=== PATIENT | male | born 1970 | race Caucasian/White ===

== ENCOUNTER 2021-02-08 12:10 | Outpatient (REF) | payer OTHER, SELFPAY ==
--- NOTE | ~2021-02-08 | XR_ITS ---
EXAMINATION: XR CHEST CLINICAL INFORMATION: Weight loss. Tobacco use. COMPARISON: Previous chest x-ray April 2011 TECHNIQUE: 2 views of the chest were obtained. FINDINGS: The cardiac and mediastinal contours are normal. The lungs are clear. There is no pleural effusion or pneumothorax. There are degenerative changes of the spine. XR/XR chest 2V IMPRESSION: No evidence for acute disease in the chest.
[2021-02-08 13:10] LABS: MANUAL DIFF FLAG NO
[2021-02-08 13:17] LABS: Basophils Absolute Auto 0.1 X10*3/uL (0.0-0.2); Basophils Percent Auto 1.1 % (0-2); Eosinophils Absolute Auto 0.5 X10*3/uL (0.0-0.4); Eosinophils Percent Auto 8.4 % (0-4); Hematocrit 37.2 % (42-52); Hemoglobin 12.9 g/dl (14.0-18.0); Imm Gran Abs Auto 0.02 X10*3/uL (0.00-0.03); Imm Gran Pct Auto 0.3 % (0.0-0.4); Lymphocytes Percent Auto 31.4 % (20-40); Mean Corpuscular HGB Conc 34.7 g/dl (31.0-36.0); Mean Corpuscular Hemoglobin 28.9 pg (27.0-33.0); Mean Corpuscular Volume 83.4 fL (80-98); Monocytes Absolute Auto 0.6 X10*3/uL (0.1-1.2); Monocytes Percent Auto 9.5 % (2-11); Neutrophils Absolute Auto 3.1 X10*3/uL (2.0-8.3); Neutrophils Percent Auto 49.3 % (45-73); Platelet Count 282 X10*3/uL (160-400); Red Blood Count 4.46 X10*6/uL (4.60-5.80); Red Cell Distribution Width 12.8 % (11.0-16.0); White Blood Count 6.2 X10*3/uL (4.8-10.8)
[2021-02-08 13:52] LABS: Alanine Aminotransferase 12 U/L (0-40); Albumin Level 4.3 g/dL (3.5-5.0); Alkaline Phosphatase 33 U/L (39-117); Anion Gap 9 (12-20); Aspartate Amino Transferase 26 U/L (5-37); Bilirubin Total 0.9 mg/dL (0.0-1.0); Blood Urea Nitrogen 11 mg/dL (9-16); Calcium 9.2 mg/dL (8.4-10.2); Carbon Dioxide 29 mmol/L (22-29); Chloride 101 mmol/L (96-108); Cholesterol 148 mg/dL; Estimated Glomerular Filt Rate > 60; Glucose Fasting 91 mg/dL (60-99); HDL Cholesterol 54 mg/dL; LDL Cholesterol Calculated 83 mg/dl; Potassium 4.4 mmol/L (3.3-5.1); Sodium 135 mmol/L (135-145); Total Protein 6.8 g/dL (6.5-8.0); Triglycerides 56 mg/dL
[2021-02-08 14:18] LABS: Free T4 (Free Thyroxine) 1.02 ng/dL (0.71-1.85); Thyroid Stimulating Hormone 0.04 uIU/mL (0.32-4.0)
[2021-02-08 16:02] LABS: Prostate Specific Antigen 0.23 ng/mL (<0.05-4.0)
== END 2021-02-08 12:11 | disposition home or self-care (01) ==
LOC: HO.XRAY 12:10
PROVIDERS: PCP Internal Medicine; Visit Provider Internal Medicine
DX: Z12.5 Encounter for screening for malignant neoplasm of prostate (principal); E03.9 Hypothyroidism, unspecified; R63.4 Abnormal weight loss; E20.9 Hypoparathyroidism, unspecified; Z72.0 Tobacco use
CPT/HCPCS: 36415; 71046; 80053; 80061; 84153; 84439; 84443; 85025

== ENCOUNTER 2022-05-15 14:43 | Emergency (ER) | payer OTHER, SELFPAY ==
[2022-05-15 15:42] VITALS: BP 110/65; PULSE 77; RESP 16; TEMP 36.6; O2SAT 99; BMI 24.5
[2022-05-15 15:57] LABS: MANUAL DIFF FLAG NO
[2022-05-15 15:59] LABS: Basophils Percent Auto 0.8 % (0-2); Eosinophils Absolute Auto 0.1 X10*3/uL (0.0-0.4); Eosinophils Percent Auto 2.1 % (0-4); Hematocrit 34.8 % (42.0-52.0); Hemoglobin 11.9 g/dl (14.0-18.0); Lymphocytes Absolute Auto 0.7 X10*3/uL (1.2-4.9); Lymphocytes Percent Auto 18.7 % (20-40); Mean Corpuscular HGB Conc 34.2 g/dl (31.0-36.0); Mean Corpuscular Volume 84.9 fL (80.0-98.0); Mean Platelet Volume 9.8 fL (9.4-12.4); Monocytes Absolute Auto 0.5 X10*3/uL (0.1-1.2); Monocytes Percent Auto 12.8 % (2-11); Neutrophils Absolute Auto 2.5 x10*3/uL (2.0-8.3); Neutrophils Percent Auto 65.6 % (45-73); Platelet Count 169 X10*3/uL (160-400); Red Cell Distribution Width 13.2 % (11.0-16.0); White Blood Count 3.7 X10*3/uL (4.8-10.8)
[2022-05-15 16:30] LABS: Anion Gap 18 (12-20); Blood Urea Nitrogen 18 mg/dL (9-16); Calcium 8.4 mg/dL (8.4-10.2); Carbon Dioxide 23 mmol/L (22-29); Chloride 98 mmol/L (96-108); Creatinine Clr Calc Pharmacy 82.2; Estimated Glomerular Filt Rate > 60; Glucose Random 59 mg/dL (60-115); Potassium 4.2 mmol/L (3.3-5.1); Sodium 135 mmol/L (135-145)
--- NOTE | 2022-05-15 16:48 | PC.NURSE ---
pt reports taking PO zofran at 1300, apple juice given for POC of 59.
[2022-05-15 17:22] LABS: Glucose, Whole Blood 67 mg/dL (60-115)
[2022-05-15 20:26] LABS: Glucose, Whole Blood 86 mg/dL (60-115)
== END 2022-05-15 20:36 | disposition left against medical advice (07) ==
PROVIDERS: Emergency Provider Emergency Medicine; PCP Internal Medicine
DX: K52.9 Noninfective gastroenteritis and colitis, unspecified (principal); E86.0 Dehydration; Z79.899 Other long term (current) drug therapy
CPT/HCPCS: 36415; 80048; 82947; 85025; 99281; 99282; 99283

== ENCOUNTER 2022-11-25 15:58 | Outpatient (REF) | payer OTHER, SELFPAY ==
--- NOTE | ~2022-11-25 | XR_ITS ---
EXAMINATION: XR CHEST CLINICAL INFORMATION: Weight loss COMPARISON: February 08, 2021 and May 21, 2011 TECHNIQUE: 2 views of the chest were obtained. FINDINGS: No significant abnormality is noted involving the heart, lungs, mediastinum, bony thorax or soft tissues. XR/XR chest 2V IMPRESSION: No acute disease.
[2022-11-25 16:14] LABS: MANUAL DIFF FLAG NO
[2022-11-25 16:29] LABS: Basophils Absolute Auto 0.1 X10*3/uL (0.0-0.2); Basophils Percent Auto 0.8 % (0-2); Eosinophils Absolute Auto 0.5 X10*3/uL (0.0-0.4); Eosinophils Percent Auto 6.6 % (0-4); Hematocrit 32.7 % (42.0-52.0); Hemoglobin 11.2 g/dl (14.0-18.0); Imm Gran Abs Auto 0.02 X10*3/uL (0.00-0.03); Imm Gran Pct Auto 0.3 % (0.0-0.4); Lymphocytes Absolute Auto 1.8 X10*3/uL (1.2-4.9); Lymphocytes Percent Auto 23.7 % (20-40); Mean Corpuscular HGB Conc 34.3 g/dl (31.0-36.0); Mean Corpuscular Hemoglobin 29.4 pg (27.0-33.0); Mean Corpuscular Volume 85.8 fL (80.0-98.0); Mean Platelet Volume 10.1 fL (9.4-12.4); Monocytes Absolute Auto 0.7 X10*3/uL (0.1-1.2); Monocytes Percent Auto 8.5 % (2-11); Neutrophils Absolute Auto 4.7 x10*3/uL (2.0-8.3); Neutrophils Percent Auto 60.1 % (45-73); Platelet Count 280 X10*3/uL (160-400); Red Blood Count 3.81 X10*6/uL (4.60-5.80); Red Cell Distribution Width 12.9 % (11.0-16.0); White Blood Count 7.7 X10*3/uL (4.8-10.8)
[2022-11-25 16:32] LABS: Appearance Urine Clear; Color Urine Yellow; Glucose Urine UA Negative (Negative); Leukocyte Esterase Urine Negative (Negative); Nitrite Urine Negative (Negative); PH 5.5 (5.0-9.0); UMIC TRIGGER UA YES; Urine Blood Large (3+) (Negative); Urine Ketones Trace mg/dL (Negative); Urine Protein Negative (Neg-Trace)
[2022-11-25 16:35] LABS: Bacteria Urine None Seen (None Seen); Hyaline Casts Urine 0-2 /LPF (0-2); Squamous Epithelial Cell Urine 0-2 /HPF (0-2); WBC Urine 0-5 /HPF (0-5)
[2022-11-25 17:00] LABS: Alanine Aminotransferase 15 U/L (0-40); Albumin Level 4.5 g/dL (3.5-5.0); Alkaline Phosphatase 35 U/L (39-117); Anion Gap 11 (12-20); Aspartate Amino Transferase 23 U/L (5-37); Bilirubin Total 0.8 mg/dL (0.0-1.0); Blood Urea Nitrogen 19 mg/dL (9-16); Calcium 9.2 mg/dL (8.4-10.2); Carbon Dioxide 26 mmol/L (22-29); Chloride 106 mmol/L (96-108); Cholesterol 159 mg/dL; Estimated Glomerular Filt Rate > 60; Glucose Random 90 mg/dL (60-115); Potassium 4.2 mmol/L (3.3-5.1); Sodium 139 mmol/L (135-145); Total Protein 6.8 g/dL (6.5-8.0)
[2022-11-25 17:22] LABS: Free T4 (Free Thyroxine) 1.32 ng/dL (0.71-1.85); Prostate Specific Antigen < 0.10 ng/mL (<0.05-4.0); Thyroid Stimulating Hormone < 0.01 uIU/mL (0.32-4.0)
== END 2022-11-25 15:59 | disposition home or self-care (01) ==
LOC: HO.LAB 15:58
PROVIDERS: PCP Internal Medicine; Visit Provider Internal Medicine
DX: R63.4 Abnormal weight loss (principal); R10.9 Unspecified abdominal pain; E07.89 Other specified disorders of thyroid; Z12.5 Encounter for screening for malignant neoplasm of prostate
CPT/HCPCS: 36415; 71046; 80053; 81001; 82465; 84153; 84439; 84443; 85025; 86140

== ENCOUNTER 2022-12-07 15:17 | Outpatient (REF) | payer OTHER, SELFPAY ==
--- NOTE | ~2022-12-07 | US_ITS ---
EXAMINATION: US RETROPERITONEAL LIMITED (RENAL ONLY) CLINICAL INFORMATION: Hematuria. COMPARISON: None available. TECHNIQUE: Real-time imaging of the kidneys. FINDINGS: RIGHT KIDNEY: 9.5 x 5.7 x 5.1 cm (SAG x AP x TRV). The kidney is normal in size, contour, and echogenicity. Renal cortical thickness is normal. No calculi or focal parenchymal lesions. No hydronephrosis. LEFT KIDNEY: 10.1 x 5.6 x 4.3 cm (SAG x AP x TRV). The kidney is normal in size, contour, and echogenicity. Renal cortical thickness is normal. No hydronephrosis. Midpole nonobstructing stone measuring 4 mm. Benign-appearing parapelvic cyst measuring up to 1.2 cm. Followup imaging is not routinely recommended for benign appearing cysts.. US/US renal BI IMPRESSION: Nonobstructing left renal nephrolithiasis.
== END 2022-12-07 15:18 | disposition home or self-care (01) ==
LOC: HO.US 15:17
PROVIDERS: PCP Internal Medicine; Visit Provider Internal Medicine
DX: R31.29 Other microscopic hematuria (principal); R63.4 Abnormal weight loss
CPT/HCPCS: 76775

== ENCOUNTER 2024-08-24 09:55 | Outpatient (REF) | payer OTHER, SELFPAY ==
--- NOTE | ~2024-08-24 | XR_ITS ---
CLINICAL HISTORY: Weight loss. r o lesion. 2 view chest x-ray Comparison: None Findings: The lungs are clear. Normal size heart. No acute fracture. IMPRESSION: 1. No acute findings. This document has been electronically signed by: Fidencio Rod MD on 08/24/2024 10:48:10
[2024-08-24 11:35] LABS: Appearance Urine Turbid; Color Urine Yellow; Glucose Urine UA Negative (Negative); Leukocyte Esterase Urine Negative (Negative); Nitrite Urine Negative (Negative); PH 5.5 (5.0-9.0); Specific Gravity - Urine 1.025 (1.005-1.025); UMIC TRIGGER UA YES; Urine Blood Large (3+) (Negative); Urine Ketones Trace mg/dL (Negative); Urine Protein 30 (1+) mg/dL (Neg-Trace)
[2024-08-24 11:43] LABS: Bacteria Urine None Seen (None Seen); Hyaline Casts Urine 0-2 /LPF (0-2); WBC Urine 0-5 /HPF (0-5)
[2024-08-24 11:52] LABS: MANUAL DIFF FLAG NO
[2024-08-24 12:02] LABS: Basophils Absolute Auto 0.1 X10*3/uL (0.0-0.2); Basophils Percent Auto 0.9 % (0-2); Eosinophils Absolute Auto 0.4 X10*3/uL (0.0-0.4); Eosinophils Percent Auto 7.4 % (0-4); Hematocrit 35.9 % (42.0-52.0); Hemoglobin 12.6 g/dl (14.0-18.0); Imm Gran Abs Auto 0.01 X10*3/uL (0.00-0.03); Imm Gran Pct Auto 0.2 % (0.0-0.4); Lymphocytes Absolute Auto 1.3 X10*3/uL (1.2-4.9); Lymphocytes Percent Auto 23.3 % (20-40); Mean Corpuscular HGB Conc 35.1 g/dl (31.0-36.0); Mean Corpuscular Hemoglobin 28.6 pg (27.0-33.0); Mean Corpuscular Volume 81.6 fL (80.0-98.0); Mean Platelet Volume 11.1 fL (9.4-12.4); Monocytes Absolute Auto 0.6 X10*3/uL (0.1-1.2); Monocytes Percent Auto 10.8 % (2-11); Neutrophils Absolute Auto 3.1 x10*3/uL (2.0-8.3); Neutrophils Percent Auto 57.4 % (45-73); Platelet Count 270 X10*3/uL (160-400); Red Cell Distribution Width 12.6 % (11.0-16.0); White Blood Count 5.4 X10*3/uL (4.8-10.8)
[2024-08-24 12:26] LABS: Alanine Aminotransferase 24 U/L (0-40); Albumin Level 4.3 g/dL (3.5-5.0); Alkaline Phosphatase 35 U/L (39-117); Anion Gap 13 (12-20); Aspartate Amino Transferase 35 U/L (5-37); Bilirubin Total 0.6 mg/dL (0.0-1.0); Blood Urea Nitrogen 21 mg/dL (9-16); C Reactive Protein 2.18 mg/dL (< or = 0.50); Calcium 9.1 mg/dL (8.4-10.2); Carbon Dioxide 24 mmol/L (22-29); Chloride 106 mmol/L (96-108); Estimated Glomerular Filt Rate > 60; Glucose Random 90 mg/dL (60-115); Potassium 3.8 mmol/L (3.3-5.1); Sodium 139 mmol/L (135-145); Total Protein 7.7 g/dL (6.5-8.0)
[2024-08-24 12:36] LABS: Prostate Specific Antigen Scr < 0.10 ng/mL (<0.05-4.0)
[2024-08-24 12:45] LABS: Free T4 (Free Thyroxine) 1.69 ng/dL (0.71-1.85); Thyroid Stimulating Hormone < 0.01 uIU/mL (0.32-4.0)
== END 2024-08-24 09:56 | disposition home or self-care (01) ==
LOC: HO.HMGCX 09:55
PROVIDERS: PCP Internal Medicine; Visit Provider Internal Medicine
DX: R63.4 Abnormal weight loss (principal); E03.9 Hypothyroidism, unspecified; R07.9 Chest pain, unspecified
CPT/HCPCS: 36415; 71046; 80053; 81001; 82550; 84153; 84439; 84443; 85025; 86140

== ENCOUNTER → 2024-08-24 10:12 | Outpatient (BNV) | payer OTHER, SELFPAY | PROVIDERS: PCP Internal Medicine; Visit Provider Radiology Diagnostic Radiology | DX: R63.4 Abnormal weight loss (principal) | CPT/HCPCS: 71046 ==

== ENCOUNTER 2024-10-10 13:16 | Outpatient (AMB) | payer OTHER, SELFPAY ==
--- NOTE | 2024-10-10 13:31 | A.OFFPC_ITS ---
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 Required: No Allergies No Known Allergies Allergy (Verified 10/10/24 13:38) Medication List - Last Reconciled 10/10/24 by Sakshi Payne MD desmopressin 10 mcg/spray (0.1 mL) 1 spray intranasal DAILY levothyroxine 88 mcg PO DAILY syringe with needle As directed testosterone cypionate 100 mg (0.5 mL) IM Q2W Dental Screening Did you have a dental visit in the last 12 months?: No Did you have a dental problem in the last 6 months where you did not have access to dental care?: Yes Was dental information given to patient?: No HPI HPI Comments History of Present Illness Details 53 year old male with past medical histo ry of hypopituitary, microscopic hematuria presenting for follow up/establish care Endocrine: Previously following with endocrinology. On levothyroxine 112mcg. Last TSH suppressed . Has not seen endocrinology for quite some time. Says he is feeling awful off testosterone. He was previously on desmopressin. Getting referral today. discussed importance of follow up Microscopic hematuria-denies previous work up Overdue colonscopy ROS joint pain fatigue PHYSICAL EXAM: Deferred [facility] Social History Housing: House Tobacco use type: Cigarette e-Cigarette/Vaping Use: Currently Using Current occupational exposures/hazards: No Cognitive needs: No Hearing needs: No Vision needs: No Physical exam (Primary Care) Vital Signs: Last Vital Signs Temp 97.6 F 10/10/24 13:32 Pulse 81 10/10/24 13:32 BP 118/70 10/10/24 13:32 Pulse Ox 98 10/10/24 13:32 BMI result Body Mass Index 22.5 Tobacco/Smoking Status: Tobacco use Status Patient Tobacco Use Status 10/10/24 13:47 Tobacco use type Cigarette 10/10/24 13:47 e-Cigarette/Vaping Use Currently Using 10/10/24 13:47 Coding Level of Care Code New Pt Level 4 (86069) Diagnoses Hypothyroidism, unspecified type E03.9 Hypothyroidism type: unspecified 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 4 months follow up Orders: Orders Testosterone, Free/Total Today E23.0 - Hypopituitarism Referrals Gastroenterology Referral Z12.11 - Encounter for screening for malignant neoplasm of colon Urology Referral E23.0 - Hypopituitarism, R31.29 - Other microscopic hematuria Endocrinology Referral E23.0 - Hypopituitarism Medications: New levothyroxine 88 mcg PO DAILY 90 tabs 3RF testosterone cypionate 100 mg (0.5 mL) IM Q2W 100 mL 3RF
[2024-10-10 13:32] VITALS: BP 118/70; PULSE 81; TEMP 36.4; O2SAT 98; BMI 22.5
== END 2024-10-10 14:00 | disposition home or self-care (01) ==
LOC: HO.HMCHD 13:16
PROVIDERS: PCP Internal Medicine; Visit Provider Internal Medicine
DX: E03.9 Hypothyroidism, unspecified (principal); E23.0 Hypopituitarism; R31.29 Other microscopic hematuria

== ENCOUNTER → 2024-10-10 13:16 | Outpatient (BNVA) | payer OTHER, SELFPAY | PROVIDERS: PCP Internal Medicine; Visit Provider Internal Medicine | DX: E03.9 Hypothyroidism, unspecified (principal); E23.0 Hypopituitarism; R31.29 Other microscopic hematuria; Z79.899 Other long term (current) drug therapy | CPT/HCPCS: 99202 ==

== ENCOUNTER 2024-10-26 09:38 | Outpatient (REF) | payer OTHER, SELFPAY ==
[2024-11-01 08:39] LABS: Testosterone, Free 7.7 pg/mL (35.0-155.0); Testosterone, Total 117 ng/dL (250-1100)
== END 2024-10-26 09:39 | disposition home or self-care (01) ==
LOC: HO.HMGCLDS 09:38
PROVIDERS: PCP Internal Medicine; Visit Provider Internal Medicine
DX: E23.0 Hypopituitarism (principal)
CPT/HCPCS: 36415; 84402; 84403

== ENCOUNTER 2024-11-14 15:14 | Outpatient (AMB) | payer OTHER, SELFPAY ==
[2024-11-14 15:15] VITALS: BP 104/56; PULSE 72; O2SAT 97; BMI 23.5
--- NOTE | 2024-11-14 15:15 | A.OFFVIS_ITS ---
Vital Signs 11/14/24 15:15 Height 5 ft 3 in Weight 132 lb 7.965 oz BMI 23.5 BP 104/56 L Blood Pressure Location Lt brachial Position Sitting Pulse 72 Pulse Source Pulse Oximeter Pulse Oximetry (%) 97 Oxygen Delivery Method Room Air Intake Visit Reasons: Hypopituitarism Intake Note: New patient present today for Hypopituitarism office visit. 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 Pituitary insufficiency diagnosed 1994, after he had surgical resection of a pituitary tumor 1994. No history of radiation therapy. The surgery was at [facility] , surgeon Dr Monica Calvin. last endo visit was 15 years ago or so, in [place], doesnt remember name He had just been following with his PCP , Dr. Lira, who just retired now seeing Dr. Cora lee who referred him. Hypothyroidism on levothyroxine 88 mcg , takes it appropriately with good adherence mostly except sometimes misses it on weekend apparenlty PCP lowered dose from 112 to 88 mcg daily on 10/10/24 Reports tiredness whihc is chronic for him. Lost 10 lbs since 3 years . Hypogonadism On IM testosterone 100 mg every 2 weeks restarted 10/10/24, every other Monday Was off it for 2.5 years before due to no refills available per patient No history of CAD, PE/DVT No family history of prostate cancer No LUTs Reports somewhat improved energy since restarting testosterone Apparently used to be on hydrocortisone 20 mg from 1994 to 2021, then apparently just stopped getting refills. intermittent nausea, no vomiting , no more tired than usual, no lightheadness or dizziness. Used to be on growth hormone as well for a year up until 2008. then stopped Diabetes insipidus on Desmopressin 10 mcg 3 to 4 times a day No nocturia no increased thirst, no polyuria works 7 30 am to 4 pm Sleeps 7 to 8 hrs at night , normal sleep cycle Physical exam General: sitting comfortably in no acute distress HEENT: normocephalic/atraumatic, EOM intact, moist oral mucosa Neck: supple, symmetrical, Cardiac: normal heart sounds Pulm: normal breath sounds B/L, no added breath sounds Abd: not distended, no tenderness Extremities: no edema, no signs of myxedema Neuro: AAO x3, Speech: normal, no facial droop, moving all 4 extremities Skin: no rash Laboratory Tests 02/08/21 11/25/22 08/24/24 12:40 16:12 10:05 Hgb 12.6 L Hct 35.9 L Sodium 139 Potassium 3.8 Creatinine 0.82 Estimated GFR > 60 PSA Screen < 0.10 TSH 0.04 L < 0.01 L < 0.01 L Free T4 1.02 1.32 1.69 Total Testosterone Fr Testosterone Dialys 10/26/24 09:54 Hgb Hct Sodium Potassium Creatinine Estimated GFR PSA Screen TSH Free T4 Total Testosterone 117 L Fr Testosterone Dialys 7.7 L PFSH Medical History (Updated 11/14/24 @ 15:45 by Vanna Urbina MD) 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 Unclear whether he has secondary adrenal insufficiency. He was most recently not following with any social science professor, and was just seeing his primary care provider. He is currently on levothyroxine replacement, testosterone replacement therapy. Apparently also total growth hormone for about a year in 2008 and has not benign recently. He was supposedly also on hydrocortisone 20 mg daily up until 2 years ago. Since had this time we are not really sure if he has cortisol deficiency, we will check cortisol/ACTH/DHEA-S levels. Plan: -check cortisol, acth, DHEA-S levels, BMP -discussed when to go to the emergency room (2) Hypothyroid: Code(s): E03.9 - Hypothyroidism, unspecified Category: Medical Qualifiers: Hypothyroidism type: unspecified Qualified Code(s): E03.9 - Hypothyroidism, unspecified Plan: Currently on levothyroxine 88 mcg daily reduced from 112 mcg daily per patient on 10/10/2024. Unclear why the dosage was reduced, his free T4 was normal. In patients with central hypothyroidism we will look at the free T4 levels to monitor dose of levothyroxine, TSH levels are not reliable in patients with central hypothyroidism. These should not be followed for managing levothyroxine dosage. Regardless at this time it has been about 5 weeks since his dose change, I will have him repeat blood work. Plan: -continue levothyroxine 88 mcg daily -do TSH, free T4 (3) Secondary male hypogonadism: Code(s): E29.1 - Testicular hypofunction Category: Medical Plan: Currently on 100 mg IM testosterone every 2 weeks. He was off a off it for about 2 years as he was not getting refills, maybe due to missing some follow ups. Now back on testosterone which she takes every 2 weeks on Saturdays. We will plan to check testosterone levels in 3 months since dose was restarted which would be sometime around 01/10/2025. PSA levels normal from August 2024. Low hemoglobin levels from August 2024, we will plan to repeat in December 2024. He denies any lower urinary tract symptoms. We will also consider getting a bone density in the near future. This is usually recommended after 1-2 years of testosterone therapy per endo society guidelines. Plan: -continue IM testosterone 100 mg every 2 weeks -plan to repeat testosterone levels in December 2024 along with PSA and hematocrit levels (4) Diabetes insipidus: Code(s): E23.2 - Diabetes insipidus Category: Medical Plan: Has a history of diabetes insipidus and is on desmopressin 10 mcg intranasal spray 3 to 4 times a day. Currently denies nocturia, polyuria, increased thirst. We will check labs. I did discuss with the him importance of allowing polyuria once a week to prevent hyponatremia. Also discussed with him about getting a medical alert bracelet. Plan: -Continue desmopressin 10 mcg 3 to 4 times a day -check urine sodium, urine osmolality, serum sodium, serum osmolality -get medical alert bracelet -allow weekly wean by using only intranasal spray 1 to 2 times a day to prevent hyponatremia Plan I spent 60 minutes in reviewing the record, seeing the patient and documenting in the medical record. Orders: Orders Adrenocorticotropic Hormone Today E03.9 - Hypothyroidism, unspecified, E23.0 - Hypopituitarism, E23.2 - Diabetes insipidus, E29.1 - Testicular hypofunction DHEA Sulfate Today E03.9 - Hypothyroidism, unspecified, E23.0 - Hypopituita rism, E23.2 - Diabetes insipidus, E29.1 - Testicular hypofunction Cortisol Random Today E03.9 - Hypothyroidism, unspecified, E23.0 - Hypopituitarism, E23.2 - Diabetes insipidus, E29.1 - Testicular hypofunction Thyroid Stimulating Hormone Today E03.9 - Hypothyroidism, unspecified, E23.0 - Hypopituitarism, E23.2 - Diabetes insipidus, E29.1 - Testicular hypofunction Free T4 (Free Thyroxine) Today E03.9 - Hypothyroidism, unspecified, E23.0 - Hypopituitarism, E23.2 - Diabetes insipidus, E29.1 - Testicular hypofunction Osmolality Urine Today E03.9 - Hypothyroidism, unspecified, E23.0 - Hypopituitarism, E23.2 - Diabetes insipidus, E29.1 - Testicular hypofunction Basic Metabolic Panel Today E03.9 - Hypothyroidism, unspecified, E23.0 - Hypopituitarism, E23.2 - Diabetes insipidus, E29.1 - Testicular hypofunction Sodium Urine Random Today E03.9 - Hypothyroidism, unspecified, E23.0 - Hypopituitarism, E23.2 - Diabetes insipidus, E29.1 - Testicular hypofunction Osmolality, Serum Today E03.9 - Hypothyroidism, unspecified, E23.0 - Hypopituitarism, E23.2 - Diabetes insipidus, E29.1 - Testicular hypofunction Medications: Changed From desmopressin 10 mcg/spray (0.1 mL) 1 spray intranasal DAILY To desmopressin 10 mcg/spray (0.1 mL) 4 sprays intranasal DAILY 5 mL 4RF Patient Instructions: Do blood work and urine test at 8 AM Get medical alert tommie or mariposa saying hypopituitarism and diabetes insipidus Once a week , allow lower dose of desmopressin 1-2 times a week to avoid dropping of sodium levels Discussed that if you are lightheaded , dizzy, starting with nausea and vomiting seek emergency care Continue levothyroxine 88 mcg daily Continue testosterone injections as it is Continue desmopressing 10 mcg nasal spray 3-4 times a day Coding Level of Care Code New Pt Level 5 (42569) Diagnoses 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
== END 2024-11-14 15:55 | disposition home or self-care (01) ==
LOC: HO.ENCR 15:15
PROVIDERS: PCP Internal Medicine; Visit Provider Student in an Organized Health Care Education/Training Program
DX: E23.0 Hypopituitarism (principal); E03.9 Hypothyroidism, unspecified; E29.1 Testicular hypofunction; E23.2 Diabetes insipidus
CPT/HCPCS: 99205

== ENCOUNTER → 2024-11-14 15:14 | Outpatient (BNVA) | payer OTHER, SELFPAY | PROVIDERS: PCP Internal Medicine; Visit Provider Student in an Organized Health Care Education/Training Program | DX: E23.0 Hypopituitarism (principal); E03.9 Hypothyroidism, unspecified; E29.1 Testicular hypofunction; E23.2 Diabetes insipidus | CPT/HCPCS: 99202 ==

== ENCOUNTER 2024-11-16 08:08 | Outpatient (REF) | payer OTHER, SELFPAY ==
[2024-11-16 09:37] LABS: Anion Gap 9 (12-20); Blood Urea Nitrogen 12 mg/dL (9-16); Calcium 8.8 mg/dL (8.4-10.2); Carbon Dioxide 29 mmol/L (22-29); Chloride 105 mmol/L (96-108); Estimated Glomerular Filt Rate > 60; Glucose Random 80 mg/dL (60-115); Potassium 4.1 mmol/L (3.3-5.1); Sodium 139 mmol/L (135-145)
[2024-11-16 09:57] LABS: Free T4 (Free Thyroxine) 0.94 ng/dL (0.71-1.85); Thyroid Stimulating Hormone 0.01 uIU/mL (0.32-4.0)
[2024-11-16 10:00] LABS: Osmolality, Serum 291 mosm/kg (281-305)
[2024-11-16 10:01] LABS: Osmolality Urine 660 mosm/kg (373-1093)
[2024-11-16 10:03] LABS: Cortisol Random < 1.0 ug/dL
[2024-11-18 14:34] LABS: DHEA Sulfate <3 mcg/dL (32-279)
[2024-11-19 20:57] LABS: Adrenocorticotropic Hormone 42 pg/mL (6-50)
== END 2024-11-16 08:09 | disposition home or self-care (01) ==
LOC: HO.HMGCLDS 08:08
PROVIDERS: PCP Internal Medicine; Visit Provider Student in an Organized Health Care Education/Training Program
DX: E23.0 Hypopituitarism (principal); E03.9 Hypothyroidism, unspecified; E29.1 Testicular hypofunction; E23.2 Diabetes insipidus
CPT/HCPCS: 36415; 80048; 82024; 82533; 82627; 83930; 83935; 84300; 84439; 84443

== ENCOUNTER 2024-12-04 14:33 | Outpatient (REF) | payer OTHER, SELFPAY ==
[2024-12-04 17:06] LABS: Urine Cytology See Pathology rpt
== END 2024-12-04 14:34 | disposition home or self-care (01) ==
LOC: HO.LAB 14:33
PROVIDERS: PCP Internal Medicine; Visit Provider Nurse Practitioner Family
DX: R31.29 Other microscopic hematuria (principal); F17.200 Nicotine dependence, unspecified, uncomplicated; E29.1 Testicular hypofunction
CPT/HCPCS: 81003; 88112; 99202

== ENCOUNTER 2024-12-04 14:33 | Outpatient (AMB) | payer OTHER, SELFPAY ==
--- NOTE | 2024-12-04 14:37 | MHC.OFFVIS ---
Intake Visit Reasons: microscopic hematuria Intake Note: Pt presents to the office today for microscopic hematuria. Urology Meds: Testosterone cypionate Allergies No Known Allergies Allergy (Verified 12/04/24 15:22) Medication List - Last Reconciled 12/04/24 by SHANIQUA Ferrari desmopressin 10 mcg/spray (0.1 mL) 4 sprays intranasal DAILY hydrocortisone 10 mg PO BID levothyroxine 100 mcg PO DAILY syringe with needle As directed testosterone cypionate 100 mg (0.5 mL) IM Q2W HPI Comments Details: Alex is a very pleasant 54-year-old male patient of Dr. Lira. He has a past medical history of diabetes insipidus and secondary hypogonadism. He presents to the office today as a new patient for microscopic hematuria. In discussion with the patient today he reports having followed up with his PCP at which time microscopic hematuria was noted and recommendations were made for urology referral for further assessment evaluation. When asked he does report a longstanding history of nicotine dependence over the last 39 years. He reports smoking approximately 15 cigarettes per day. He does report noting change in the color of his urine over the last in office urinalysis results reviewed with the patient today. 3+ microscopic hematuria otherwise within normal limits. In review of patient's chart it appears PSAs are as follows: PSA 12/13 <0.10, 09/17 <0.10 Testosterone: 11/15 117 He otherwise denies any bothersome urinary issues. We discussed potential causes of hypogonadism as well as microscopic hematuria as well as further workup in risks and benefits of these interventions. We discussed reasons for blood in the urine may include but are not limited to kidney stones, cancer in the urinary tract, BPH, kidney stone disease or inflammatory conditions of the urinary tract. I have discussed workup to include cystoscopy evaluation. He denies urinary urgency, urinary frequency, incontinence, nocturia, hematuria, dysuria, foul smelling urine, changes to urinary stream, flank pain, fever, and or chills. He is happy with his current voiding parameters. [facility] Medical History Diabetes insipidus Secondary male hypogonadism Social History Housing: House Tobacco use type: Cigarette e-Cigarette/Vaping Use: Currently Using Current occupational exposures/hazards: No Cognitive needs: No Hearing needs: No Vision needs: No Review of Systems Const All systems reviewed & are unremarkable except as noted in HPI and below Physical Exam Const General: cooperative, healthy appearing, comfortable, no acute distress, well developed, alert and awake Orientation/consciousness: patient oriented x3 Limitations: no limitations HEENT Head: Yes normal to inspection, Yes normocephalic and Yes atraumatic Ears: hearing grossly normal bilaterally Eyes General: appearance normal, both eyes and all related structures Neck Neck: Yes normal visual inspection and Yes trachea midline Chest Chest palpation & inspection: normal inspection of the chest Resp Effort & Inspection: normal respiratory effort and able to speak in complete sentences Cardio Rate: regular rate GI Inspection: Yes normal to inspection General: Yes no CVA tenderness Back/Spine/Pelvis Back: no CVA tenderness Skin General skin exam: no rashes or lesions noted Neuro General: patient oriented x3 Extrem General: Yes normal to inspection Psych Appearance: grossly normal and well kempt Mental Status: mental status grossly normal Speech and movement: Normal speech and movement present and Clear speech present Affect: normal affect Attitude: cooperative Thought process: Normal thought process present Thought content: Normal thought content present Insight: Fair insight present (Psych) Judgement: Fair judgement present (Psych) Results AMB Urinalysis, Automated UA Leukoctes 0 Rajni/uL Last Edit by Felisha Arauz CMA on 12/04/24 14:43 UA Nitrite Negative Last Edit by Felisha Arauz CMA on 12/04/24 14:43 UA Urobilinogen 0.2 mg/dL Last Edit by Felisha Arauz CMA on 12/04/24 14:43 UA Protein 15 mg/dL Last Edit by Felisha Arauz CMA on 12/04/24 14:43 UA pH 5.5 Last Edit by Felisha Arauz CMA on 12/04/24 14:43 UA Blood 200 Jose/uL Last Edit by Felisha Arauz CMA on 12/04/24 14:43 UA Specific [place] 1.030 Last Edit by Felisha Arauz CMA on 12/04/24 14:43 UA Ketone Positive Last Edit by Felisha Arauz CMA on 12/04/24 14:43 UA Bilirubin 1 mg/dL Last Edit by Felisha Arauz CMA on 12/04/24 14:43 UA Glucose 0 mg/dL Last Edit by Felisha Arauz CMA on 12/04/24 14:43 Results Reviewed Results Reviewed: Laboratory Last Values Urine pH (Auto) 5.5 12/04/24 14:42 Specific [place] (Auto) 1.030 12/04/24 14:42 Urine Protein (Auto) 15 mg/dL 12/04/24 14:42 Glucose (UA)(Auto) 0 mg/dL 12/04/24 14:42 Urine Ketones (Auto) Positive 12/04/24 14:42 Urine Blood (Auto) 200 Jose/uL 12/04/24 14:42 Urine Nitrite (Auto) Negative 12/04/24 14:42 Urine Bilirubin (Auto) 1 mg/dL 12/04/24 14:42 Urine Urobilinogen (Auto) 0.2 mg/dL 12/04/24 14:42 Leukocyte Esterase (Auto) 0 Rajni/uL 12/04/24 14:42 Assessment & Plan Assessment & Plan (1) Microscopic hematuria: Code(s): R31.29 - Other microscopic hematuria Category: Medical (2) Secondary male hypogonadism: Code(s): E29.1 - Testicular hypofunction Category: Medical (3) Nicotine dependence: Code(s): F17.200 - Nicotine dependence, unspecified, uncomplicated Category: Medical Plan In office urinalysis results reviewed with the patient today; as noted above; will send for urine cytology. Patient currently denies any bothersome urinary issues or concerns. He reports be happy with current voiding parameters. We discussed potential causes of microscopic hematuria as well as further workup in risks and benefits of these interventions. Will obtain CT urogram for further assessment evaluation. BUN and creatinine ordered for imaging. We discussed hypogonadism as well as further treatment options and risks and benefits of these treatment options. Recent PSA results reviewed with the patient today; as noted above. We discussed importance of limiting/quitting nicotine dependence for overall health and well-being. All questions were answered. Information was provided regarding hematuria as well as cystoscopy Follow-up in 1-3 months with imaging and labs to be completed prior; or sooner with any issues, concerns, and or questions. Orders: Orders Blood Urea Nitrogen Today R31.29 - Other microscopic hematuria AMB Urinalysis Automated Today R31.29 - Other microscopic hematuria Urine Cytology Today R31.29 - Other microscopic hematuria Creatinine Today R31.29 - Other microscopic hematuria CT urogram Today F17.200 - Nicotine dependence, unspecified, uncomplicated, R31.29 - Other microscopic hematuria Patient Instructions: The patient had an opportunity to ask questions regarding the treatment plan. All questions were answered. Physical exam, labs, and imaging were discussed and reviewed in detail. As well as risks, benefits, and discussion of treatment choices. No major barriers to understanding were identified. The patient expressed understanding and agreement with the above treatment plan. The patient was made aware they should contact our office by phone for worsening of their current condition, the appearance of new symptoms, or with any questions or concerns. Compliance is encouraged with any medications and follow up testing that is ordered. It is a privilege to be allowed the opportunity to participate in? your urological care.? Again, if you have any questions or concerns If you have any questions or concerns please do not hesitate to contact me. The office is [phone]. This note is constructed using voice recognition software. While every effort has been made to ensure accuracy sleeve machine tender errors may have been included. Yours sincerely, SHANIQUA Ferrari Coding Level of Care Code New Pt Level 3 (44280) Diagnoses Microscopic hematuria R31.29 Secondary male hypogonadism E29.1 Nicotine dependence F17.200
== END 2024-12-04 16:53 | disposition home or self-care (01) ==
LOC: HO.HUSH 14:33
PROVIDERS: PCP Internal Medicine; Visit Provider Nurse Practitioner Family
DX: R31.29 Other microscopic hematuria (principal); E29.1 Testicular hypofunction; F17.200 Nicotine dependence, unspecified, uncomplicated
CPT/HCPCS: 99203

== ENCOUNTER 2024-12-30 14:19 | Outpatient (AMB) | payer OTHER, SELFPAY ==
[2024-12-30 14:22] VITALS: BP 110/68; PULSE 75; O2SAT 94; BMI 24.1
--- NOTE | 2024-12-30 14:22 | MHC.OFFVIS ---
Vital Signs 12/30/24 14:22 Height 5 ft 3 in Weight 136 lb 0.403 oz BMI 24.1 BP 110/68 Blood Pressure Location Lt brachial Position Sitting Pulse 75 Pulse Source Pulse Oximeter Pulse Oximetry (%) 94 Oxygen Delivery Method Room Air Intake Visit Reasons: Hypopituitarism Intake Note: Patient present today for Hypopituitarism office visit. 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 HPI Pituitary insufficiency diagnosed 1994, after he had surgical resection of a pituitary tumor 1994. No history of radiation therapy. The surgery was at [facility] , surgeon Dr Monica Calvin. last endo visit was 15 years ago or so, in [place], doesnt remember name He had just been following with his PCP , Dr. Lira, who just retired now seeing Dr. Cora lee who referred him. Hypothyroidism on levothyroxine 88 mcg , takes it appropriately with good adherence mostly except sometimes misses it on weekend apparenlty PCP lowered dose from 112 to 88 mcg daily on 10/10/24 Reports tiredness whihc is chronic for him. Lost 10 lbs since 3 years . Hypogonadism On IM testosterone 100 mg every 2 weeks restarted 10/10/24, every other Monday Was off it for 2.5 years before due to no refills available per patient No history of CAD, PE/DVT No family history of prostate cancer No LUTs Reports somewhat improved energy since restarting testosterone Apparently used to be on hydrocortisone 20 mg from 1994 to 2021, then apparently just stopped getting refills. intermittent nausea, no vomiting , no more tired than usual, no lightheadness or dizziness. Used to be on growth hormone as well for a year up until 2008. then stopped Diabetes insipidus on Desmopressin 10 mcg 3 to 4 times a day No nocturia no increased thirst, no polyuria works 7 30 am to 4 pm Sleeps 7 to 8 hrs at night , normal sleep cycle Interval history Labs 11/16/2024 showed low TSH of 0.01, free T4 also at the lower end of normal at 0.94, since we target free T4 due mid to upper normal, levothyroxine increased back to 100 mcg daily. Also noted to have undetectable cortisol level, undetectable DHEA-S, though surprisingly ACTH was on the higher side at 42. He denies any exogenous steroid use. Electrolytes were normal, normal kidney function. Started on hydrocortisone 10 mg in a.m. and 10 mg in the afternoon which patient has stopped taking a few weeks back because of feeling wired and having insomnia. No nausea , vomiting , dizziness or lightheadeness Hasnt got medical alert [place] yet Physical exam General: sitting comfortably in no acute distress HEENT: normocephalic/atraumatic, moist oral mucosa Neck: supple, symmetrical, Cardiac: normal heart sounds Pulm: normal breath sounds B/L, no added breath sounds Abd: not distended, no tenderness Extremities: no edema, no signs of myxedema Neuro: AAO x3, Speech: normal, no facial droop, moving all 4 extremities Skin: no rash Laboratory Tests 02/08/21 11/25/22 08/24/24 12:40 16:12 10:05 Hgb 12.6 L Hct 35.9 L Sodium 139 Potassium 3.8 Creatinine 0.82 Estimated GFR > 60 PSA Screen < 0.10 TSH 0.04 L < 0.01 L < 0.01 L Free T4 1.02 1.32 1.69 Total Testosterone Fr Testosterone Dialys 10/26/24 09:54 Hgb Hct Sodium Potassium Creatinine Estimated GFR PSA Screen TSH Free T4 Total Testosterone 117 L Fr Testosterone Dialys 7.7 L Laboratory Tests 10/26/24 11/16/24 11/16/24 09:54 08:36 Unknown Sodium 139 Potassium 4.1 Creatinine 0.86 Estimated GFR > 60 Random Glucose 80 Osmolality 291 TSH 0.01 L Free T4 0.94 Total Testosterone 117 L Fr Testosterone Dialys 7.7 L DHEA Sulfate <3 L Random Cortisol < 1.0 ACTH 42 Urine Osmolality 660 Ur Random Sodium 157.0 PFSH Medical History Diabetes insipidus Secondary male hypogonadism Social History Housing: House Tobacco use type: Cigarette e-Cigarette/Vaping Use: Currently Using Current occupational exposures/hazards: No Cognitive needs: No Hearing needs: No Vision needs: No Physical Exam Vital Signs: Last Vital Signs Pulse 75 12/30/24 14:22 BP 110/68 12/30/24 14:22 Pulse Ox 94 12/30/24 14:22 Oxygen Delivery Method Room Air 12/30/24 14:22 BMI result Body Mass Index 24.1 Assessment & Plan Assessment & Plan (1) Hypopituitarism: Code(s): E23.0 - Hypopituitarism Category: Medical Plan: 53-year-old male with a history of pituitary tumor status post resection in 1994 who 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 Unclear whether he has secondary adrenal insufficiency. He was most recently not following with any maintenance of way clerk, and was just seeing his primary care provider. He is currently on levothyroxine replacement, testosterone replacement therapy. Apparently also on growth hormone for about a year in 2008 and has not been recently. He was supposedly also on hydrocortisone 20 mg daily up until 2 years ago. Since had this time we are not really sure if he has cortisol deficiency, Labs 11/16/2024 showed low TSH of 0.01, free T4 also at the lower end of normal at 0.94, since we target free T4 due mid to upper normal, levothyroxine increased back to 100 mcg daily. Also noted to have undetectable cortisol level, undetectable DHEA-S, though surprisingly ACTH was on the higher side at 42. He denies any exogenous steroid use. Electrolytes were normal, normal kidney function. Started on hydrocortisone 10 mg in a.m. and 10 mg in the afternoon which patient has stopped taking a few weeks back because of feeling wired and having insomnia. Plan: -restart hydrocortisone 10 mg in the morning and 5 mg in the afternoon, if continues to feel symptoms of increased anxiety, insomnia, can reduce hydrocortisone to 10 mg in the morning, I discussed with the him importance of communicating to us before stopping steroids -did sick day education as well as importance of medical alert bracelet discussed It might be that he does not need hydrocortisone for day-to-day situations but could needed in the situation of stress/infection. We will continue to monitor and see how he does on the new dose. (2) Hypothyroid: Code(s): E03.9 - Hypothyroidism, unspecified Category: Medical Qualifiers: Hypothyroidism type: unspecified Qualified Code(s): E03.9 - Hypothyroidism, unspecified Plan: Labs 11/16/2024 showed low TSH of 0.01, free T4 also at the lower end of normal at 0.94, since we target free T4 due mid to upper normal, levothyroxine increased back to 100 mcg daily. Only free T4 levels should be taken into account while making dose changes. Plan: -continue levothyroxine 100 mcg daily -do TSH, free T4 in a week which would be about 6 weeks since dose change, we will reach out with the results (3) Secondary male hypogonadism: Code(s): E29.1 - Testicular hypofunction Category: Medical Plan: Currently on 100 mg IM testosterone every 2 weeks. He was off a off it for about 2 years as he was not getting refills, maybe due to missing some follow ups. Now back on testosterone which she takes every 2 weeks on Saturdays. We will plan to check testosterone levels in 3 months since dose was restarted which would be sometime around 01/10/2025. PSA levels normal from August 2024. Low hemoglobin levels from August 2024, we will plan to repeat in December 2024. He denies any lower urinary tract symptoms. We will also consider getting a bone density in the near future. This is usually recommended after 1-2 years of testosterone therapy per endo society guidelines. Plan: -continue IM testosterone 100 mg every 2 weeks -ordered repeat testosterone levels along with PSA and hematocrit levels (4) Diabetes insipidus: Code(s): E23.2 - Diabetes insipidus Category: Medical Plan: Has a history of diabetes insipidus and is on desmopressin 10 mcg intranasal spray 3 to 4 times a day. Currently denies nocturia, polyuria, increased thirst. Normal sodium, urine osmolality, serum osmolality from November 2024 I did discuss with the him importance of allowing polyuria once a week to prevent hyponatremia. Also discussed with him about getting a medical alert bracelet. Plan: -Continue desmopressin 10 mcg 3 to 4 times a day -get medical alert bracelet -allow weekly wean by using only intranasal spray 1 to 2 times a day to prevent hyponatremia Plan I spent 30 minutes in reviewing the record, seeing the patient and documenting in the medical record. Orders: Orders Free T4 (Free Thyroxine) 1 Week E03.9 - Hypothyroidism, unspecified, E23.0 - Hypopituitarism, E29.1 - Testicular hypofunction Testosterone, Free/Total 1 Week E03.9 - Hypothyroidism, unspecified, E23.0 - Hypopituitarism, E29.1 - Testicular hypofunction Prostate Specific Antigen 1 Week E03.9 - Hypothyroidism, unspecified, E23.0 - Hypopituitarism, E29.1 - Testicular hypofunction Hemoglobin 1 Week E03.9 - Hypothyroidism, unspecified, E23.0 - Hypopituitarism, E29.1 - Testicular hypofunction Thyroid Stimulating Hormone 1 Week E03.9 - Hypothyroidism, unspecified, E23.0 - Hypopituitarism, E29.1 - Testicular hypofunction Hematocrit 1 Week E03.9 - Hypothyroidism, unspecified, E23.0 - Hypopituitarism, E29.1 - Testicular hypofunction Medications: Changed From hydrocortisone 1 tablet in AM and 1 tablet at 2 PM in the afternoon 10 mg PO BID 60 tabs 5RF To hydrocortisone orally 2 times a day; 1 tablet in AM and half tablet at 2 PM in the afternoon 60 tabs 5RF Patient Instructions: Start hydrocortisone again 10 mg in AM and 5 mg at 2 pm in afternoon, if you again feel wired or have insomnia, you can try just doing 10 mg in AM Continue levothyroxine 100 mcg daily ADRENAL SICK DAY RULE Minor ailments can affect anyone with a steroid-dependent adrenal condition very differently. Things like vomiting, diarrhea, colds and flu could cause an adrenal crisis. It's important that you spot the early symptoms of a bug or cold and adjust your steroid replacement medication. The Sick Day Rules are here to help you. If you're feeling ill or injured follow these rules to keep safe and reduce the chances of an adrenal crisis.?Make sure that you keep taking your medication whatever is going on. An adrenal crisis is serious, uncomfortable and can be life-threatening. What to do Double?your daily hydrocortisone, prednisone or prednisolone dose if: ? You have a temperature of 100.4 degrees or above. ? You get a bad cold, flu, diarrhea or other infection that makes you feel poorly or weak. ? You break a bone or suffer from any similar significant injury. For how long? ? Double your dose for 48-72 hours. If you are feeling better, go back to your usual dose. ? If you don't feel better after 48hrs, continue to double your does and speak to your doctor for more advice. ? If you are prescribed antibiotics, continue to double your dose until you finish the course or feel completely back to normal. I can't keep my medication down 1. If you vomit and bring up your medication within 30 minutes of taking it, take a double dose again immediately. 2. If you bring up the second dose,?inject yourself with 100mg of hydrocortisone?(if this has been prescribed to you) and seek medical advice immediately. 3. If you carry on vomiting, you will become dehydrated Discussed that if you are lightheaded , dizzy, starting with nausea and vomiting seek emergency care Get medical alert tommie or [place] saying hypopituitarism and diabetes insipidus Once a week , allow lower dose of desmopressin 1-2 times a week to avoid dropping of sodium levels Continue testosterone injections as it is Continue desmopressin 10 mcg nasal spray 3-4 times a day Do early 8 AM fasting blood work during the week you are not taking testosterone so good date would be or 11 January Coding Level of Care Code Est Pt Level 4 (98539) Complex EM visit Add On G2211 Diagnoses Hypopituitarism E23.0 Hypothyroidism, unspecified type E03.9 Hypothyroidism type: unspecified Secondary male hypogonadism E29.1 Diabetes insipidus E23.2 Time Spent (min) 30
== END 2024-12-30 15:17 | disposition home or self-care (01) ==
LOC: HO.ENCR 14:19
PROVIDERS: PCP Internal Medicine; Visit Provider Student in an Organized Health Care Education/Training Program
DX: E23.0 Hypopituitarism (principal); E03.9 Hypothyroidism, unspecified; E23.2 Diabetes insipidus
CPT/HCPCS: 99214; G2211

== ENCOUNTER → 2024-12-30 14:19 | Outpatient (BNVA) | payer OTHER, SELFPAY | PROVIDERS: PCP Internal Medicine; Visit Provider Student in an Organized Health Care Education/Training Program | DX: E29.1 Testicular hypofunction (principal) | CPT/HCPCS: 99212 ==

== ENCOUNTER 2025-01-11 08:56 | Outpatient (REF) | payer OTHER, SELFPAY ==
[2025-01-11 11:24] LABS: Hematocrit 39.3 % (42.0-52.0); Hemoglobin 13.3 g/dl (14.0-18.0)
[2025-01-11 11:40] LABS: Blood Urea Nitrogen 10 mg/dL (9-16); Estimated Glomerular Filt Rate > 60
[2025-01-11 11:54] LABS: Prostate Specific Antigen 0.37 ng/mL (<0.05-4.0)
[2025-01-11 12:02] LABS: Thyroid Stimulating Hormone < 0.01 uIU/mL (0.32-4.0)
[2025-01-18 14:29] LABS: Testosterone, Free 477.2 pg/mL (35.0-155.0); Testosterone, Total 2398 ng/dL (250-1100)
== END 2025-01-11 08:57 | disposition home or self-care (01) ==
LOC: HO.HMGCLDS 08:56
PROVIDERS: PCP Internal Medicine; Visit Provider Student in an Organized Health Care Education/Training Program
DX: Z12.5 Encounter for screening for malignant neoplasm of prostate (principal); E03.9 Hypothyroidism, unspecified; E23.0 Hypopituitarism; R31.29 Other microscopic hematuria
CPT/HCPCS: 36415; 82565; 84153; 84402; 84403; 84439; 84443; 84520; 85014; 85018

== ENCOUNTER 2025-02-19 09:56 | Outpatient (REF) | payer OTHER, SELFPAY ==
--- NOTE | ~2025-02-19 | CT_ITS ---
CLINICAL HISTORY: R31.29 - Other microscopic hematuria CT abdomen and pelvis with and without contrast Comparison: None provided Findings: The lung bases are clear. There is no urinary calculus or obstructive uropathy. No suspicious renal, ureteral or bladder lesion identified. The liver, gallbladder, spleen, adrenal glands and pancreas are unremarkable The appendix is borderline prominent but without surrounding stranding. No bowel obstruction or free air. The prostate gland is within normal limits. Borderline retroperitoneal lymph nodes, with faint surrounding stranding. No acute osseous abnormality. Impression: No urinary calculus, obstructive uropathy or suspicious urinary tract lesion. Nonspecific borderline adenopathy within the retroperitoneum with faint surrounding stranding. Clinical correlation and possible follow-up CT within 3-[address] imaging exists elsewhere and a comparison could be made. This document has been electronically signed by: Brannon Vital MD on 02/19/2025 12:58:42
[2025-02-19] MEDS: iohexoL 350 MG/ML 100 ML INFUS..BTL IV (11:29)
[2025-02-19 12:30] LABS: Creatinine POC 1.1 mg/dL (0.5-1.4); GFR POC > 60
== END 2025-02-19 09:57 | disposition home or self-care (01) ==
LOC: HO.CT 09:56
PROVIDERS: PCP Internal Medicine; Visit Provider Nurse Practitioner Family
DX: R31.29 Other microscopic hematuria (principal); F17.200 Nicotine dependence, unspecified, uncomplicated
CPT/HCPCS: 74178; 82565; Q9967

== ENCOUNTER → 2025-02-19 09:59 | Outpatient (BNV) | payer OTHER, SELFPAY | PROVIDERS: PCP Internal Medicine; Visit Provider Radiology Vascular & Interventional Radiology | DX: R31.29 Other microscopic hematuria (principal) | CPT/HCPCS: 74178 ==

== ENCOUNTER 2025-03-31 12:47 | Outpatient (REF) | payer OTHER, SELFPAY | END 2025-03-31 12:48 | disposition home or self-care (01) | LOC: HO.LAB 12:47 | PROVIDERS: PCP Internal Medicine; Visit Provider Nurse Practitioner Family | DX: R31.29 Other microscopic hematuria (principal); F17.200 Nicotine dependence, unspecified, uncomplicated; Z13.89 Encounter for screening for other disorder | CPT/HCPCS: 81003; 88112; 99212 ==

== ENCOUNTER 2025-03-31 12:47 | Outpatient (AMB) | payer OTHER, SELFPAY ==
--- NOTE | 2025-03-31 13:01 | A.OFFVIS_ITS ---
Intake Visit Reasons: follow up Intake Note: Patient is present for F/U Urology Medication:TESTOSTERONE Antibiotic Allergy:NONE Blood Thinner:NONE Lacing Presser Required: No Allergies No Known Allergies Allergy (Verified 03/31/25 13:29) Medication List - Last Reconciled 03/31/25 by SHANIQUA Ferrari desmopressin 10 mcg/spray (0.1 mL) 4 sprays intranasal DAILY hydrocortisone orally 2 times a day; 1 tablet in AM and half tablet at 2 PM in the afternoon levothyroxine 100 mcg PO DAILY syringe with needle As directed testosterone cypionate 50 mg (0.25 mL) IM Q2W HPI Comments Details: Alex is a very pleasant 54-year-old male patient of Dr. Payne He has a past medical history of diabetes insipidus and secondary hypogonadism. He presents to the office today for follow-up. Of note, patient was seen a pproximately 4 months ago as a new patient for microscopic hematuria in the setting of nicotine dependence at which time a CT urogram was ordered for further assessment evaluation in discussion regarding potential causes of microscopic hematuria were discussed. Recent CT urogram results were reviewed. 02/14 no urinary calculus, obstructive uropathy, or suspicious urinary tract lesions. Nonspecific borderline adenopathy within the retroperitoneum. He discusses following up with endocrinology here at [facility] for testosterone replacement and hypothyroidism. We did discussed most recent elevated testosterone levels. He is currently off testosterone and will be redrawn levels and following up with analytical tech as planned. He denies any bothersome urinary issues. He does report a longstanding history of nicotine dependence over the last 40 years. He smokes approximately 15 cigarettes per day. In office urinalysis results reviewed with the patient today. Patient continues with 3+ microscopic hematuria. Previous urine cytology and lab results were reviewed: Urine cytology 12/15: Negative for high-grade urothelial carcinoma. PSA 12/13 <0.10, 09/17 <0.10, 01/15 0.4 Testosterone: 11/15 117, 01/15 2398 Free testosterone: 01/15 477.2 He otherwise denies any bothersome urinary issues. We discussed potential causes of hypogonadism as well as microscopic hematuria as well as further workup in risks and benefits of these interventions. I have discussed workup to include cystoscopy evaluation. He denies urinary urgency, urinary frequency, incontinence, nocturia, hematuria, dysuria, foul smelling urine, changes to urinary stream, flank pain, fever, and or chills. He is happy with his current voiding parameters. [facility] Medical History Diabetes insipidus Secondary male hypogonadism Social History Housing: House Tobacco use type: Cigarette e-Cigarette/Vaping Use: Currently Using Current occupational exposures/hazards: No Cognitive needs: No Hearing needs: No Vision needs: No Review of Systems Const All systems reviewed & are unremarkable except as noted in HPI and below Physical Exam Const General: cooperative, healthy appearing, comfortable, no acute distress, well developed, alert and awake Orientation/consciousness: patient oriented x3 Limitations: no limitations HEENT Head: Yes normal to inspection, Yes normocephalic and Yes atraumatic Ears: hearing grossly normal bilaterally Eyes General: appearance normal, both eyes and all related structures Neck Neck: Yes normal visual inspection and Yes trachea midline Chest Chest palpation & inspection: normal inspection of the chest Resp Effort & Inspection: normal respiratory effort and able to speak in complete sentences Cardio Rate: regular rate GI Inspection: Yes normal to inspection General: Yes no CVA tenderness Back/Spine/Pelvis Back: no CVA tenderness Skin General skin exam: no rashes or lesions noted Neuro General: patient oriented x3 Extrem General: Yes normal to inspection Psych Appearance: grossly normal and well kempt Mental Status: mental status grossly normal Speech and movement: Normal speech and movement present and Clear speech present Affect: normal affect Attitude: cooperative Thought process: Normal thought process present Thought content: Normal thought content present Insight: Fair insight present (Psych) Judgement: Fair judgement present (Psych) Results AMB Urinalysis, Automated UA Leukoctes 0 Rajni/uL Last Edit by LOLIS Pan on 03/31/25 13:17 UA Nitrite Negative Last Edit by LOLIS Pan on 03/31/25 13:17 UA Urobilinogen 0.2 mg/dL Last Edit by LOLIS Pan on 03/31/25 13:1 7 UA Protein 0 mg/dL Last Edit by LOLIS Pan on 03/31/25 13:17 UA pH 6.0 Last Edit by LOLIS Pan on 03/31/25 13:17 UA Blood 200 Jose/uL Last Edit by LOLIS Pan on 03/31/25 13:17 UA Specific Diamond 1.025 Last Edit by LOLIS Pan on 03/31/25 13: 17 UA Ketone Negative Last Edit by LOLIS Pan on 03/31/25 13:17 UA Bilirubin 0 mg/dL Last Edit by Malgorzata Hobbs [facility] on 03/31/25 13:17 UA Glucose 0 mg/dL Last Edit by LOLIS Pan on 03/31/25 13:17 Results Reviewed Results Reviewed: Date of Service: 02/19/25 Procedure(s): CT urogram Findings: The lung bases are clear. There is no urinary calculus or obstructive uropathy. No suspicious renal, ureteral or bladder lesion identified. The liver, gallbladder, spleen, adrenal glands and pancreas are unremarkable The appendix is borderline prominent but without surrounding stranding. No bowel obstruction or free air. The prostate gland is within normal limits. Borderline retroperitoneal lymph nodes, with faint surrounding stranding. No acute osseous abnormality. Impression: No urinary calculus, obstructive uropathy or suspicious urinary tract lesion. Nonspecific borderline adenopathy within the retroperitoneum with faint surrounding stranding. Clinical correlation and possible follow-up CT within 3-[address] imaging exists elsewhere and a comparison could be made. Assessment & Plan Assessment & Plan (1) Microscopic hematuria: Code(s): R31.29 - Other microscopic hematuria Category: Medical (2) Nicotine dependence: Code(s): F17.200 - Nicotine dependence, unspecified, uncomplicated Category: Medical Plan In office urinalysis results reviewed with the patient today; as noted above; will send for urine cytology. Recent CT urogram results reviewed with the patient today; as noted above. We did discuss cystoscopy however patient does continue to decline we did discussed potential delay in treatment All questions were answered He will continue with management of testosterone replacement with endocrinology per his request We did discussed the importance of limiting/quitting nicotine dependence for overall health and well-being. Recent urine cytology results reviewed with the patient today He denies any bothersome urinary issues or concerns He reports be happy with current voiding parameters Will continue with surveillance monitoring All questions were answered Follow-up in 6 months with urinalysis; or sooner with any issues, concerns, and or questions. Orders: Orders Urine Cytology Today R31.29 - Other microscopic hematuria AMB Urinalysis Automated Today Z13.9 - Encounter for screening, unspecified Patient Instructions: The patient had an opportunity to ask questions regarding the treatment plan. All questions were answered. Physical exam, labs, and imaging were discussed and reviewed in detail. As well as risks, benefits, and discussion of treatment choices. No major barriers to understanding were identified. The patient expressed understanding and agreement with the above treatment plan. The patient was made aware they should contact our office by phone for worsening of their current condition, the appearance of new symptoms, or with any questions or concerns. Compliance is encouraged with any medications and follow up testing that is ordered. It is a privilege to be allowed the opportunity to participate in? your urological care.? Again, if you have any questions or concerns If you have any questions or concerns please do not hesitate to contact me. The office is [phone]. This note is constructed using voice recognition software. While every effort has been made to ensure accuracy options trader errors may have been included. Yours sincerely, SHANIQUA Ferrari Coding Level of Care Code Est Pt Level 3 (68521) Diagnoses Microscopic hematuria R31.29 Nicotine dependence F17.200
== END 2025-03-31 13:23 | disposition home or self-care (01) ==
LOC: HO.HUSH 12:48
PROVIDERS: PCP Internal Medicine; Visit Provider Nurse Practitioner Family
DX: R31.29 Other microscopic hematuria (principal); F17.200 Nicotine dependence, unspecified, uncomplicated; Z13.9 Encounter for screening, unspecified
CPT/HCPCS: 99213